=== PATIENT | female | born 1955 | race Two or more races ===

== ENCOUNTER 2017-08-24 08:36 | Outpatient (CLI) | payer OTHER ==
[~2017-08-24 08:36] MED LIST: MORPHINE SULFAT30 M1; NEURONTIN800 MG; PERCOCET 5/3251 TAB; SEPTRA DS TABLE1 TAB PO; ZANAFLEX4 MG
== END 2017-08-24 09:05 | disposition home or self-care (01) ==
LOC: RAD 08:36
DX: M12.89 Other specific arthropathies, not elsewhere classified, multiple sites (principal); M19.90 Unspecified osteoarthritis, unspecified site

== ENCOUNTER 2017-10-11 11:52 | Outpatient (CLI) | payer OTHER | END 2017-10-11 14:15 | disposition home or self-care (01) | LOC: RAD 11:52 | DX: R07.89 Other chest pain (principal) ==

== ENCOUNTER 2018-01-25 08:51 | Outpatient (CLI) | payer OTHER | END 2018-01-25 09:13 | disposition home or self-care (01) | LOC: LAB 08:51 | DX: M25.511 Pain in right shoulder (principal); I10 Essential (primary) hypertension; E11.9 Type 2 diabetes mellitus without complications; E03.8 Other specified hypothyroidism; E78.2 Mixed hyperlipidemia ==

== ENCOUNTER 2018-05-02 09:42 | Outpatient (CLI) | payer OTHER | END 2018-05-02 15:29 | disposition home or self-care (01) | LOC: SONOGRAMA 09:42 | DX: M25.511 Pain in right shoulder (principal); M75.41 Impingement syndrome of right shoulder ==

== ENCOUNTER 2018-05-02 11:26 | Outpatient (CLI) | payer OTHER | END 2018-05-02 11:41 | disposition home or self-care (01) | LOC: LAB 11:26 | DX: I10 Essential (primary) hypertension (principal); E11.9 Type 2 diabetes mellitus without complications; E03.8 Other specified hypothyroidism; E78.1 Pure hyperglyceridemia; K92.1 Melena; D64.0 Hereditary sideroblastic anemia ==

== ENCOUNTER 2019-02-08 10:54 | Outpatient (CLI) | payer OTHER | END 2019-02-08 10:57 | disposition home or self-care (01) | LOC: RAD 10:54 | DX: M25.551 Pain in right hip (principal); M25.552 Pain in left hip; M54.5 Low back pain ==

== ENCOUNTER → 2019-02-13 | Outpatient (CLI) | payer OTHER | END | disposition home or self-care (01) | LOC: MRI 10:03 | DX: M25.552 Pain in left hip (principal) | CPT/HCPCS: 73721 ==

== ENCOUNTER 2019-02-15 11:00 | Emergency (ER) | payer OTHER ==
[~2019-02-15] VITALS: Ht 170.2 cm; Wt 99.8 kg
== END 2019-02-15 16:17 | disposition home or self-care (01) ==
LOC: ER 11:00
DX: S30.0XXA Contusion of lower back and pelvis, initial encounter (principal); M54.5 Low back pain; W18.09XA Striking against other object with subsequent fall, initial encounter; Y93.89 Activity, other specified; Y92.018 Other place in single-family (private) house as the place of occurrence of the external cause; Y99.8 Other external cause status